=== PATIENT | female | born 1975 | race Caucasian/White ===

== ENCOUNTER 2018-02-13 17:19 | Emergency (ER) | payer OTHER ==
[~2018-02-13] VITALS: Ht 152.4 cm; Wt 106.6 kg
[~2018-02-13 17:19] MED LIST: ATORVASTATIN CA40 MG PO; CEFDINIR300 MG PO; CELEXA20 MG PO; CIPRO500 MG PO; CLONAZEPAM 0.50.5 M1 PO; CORGARD 80MG TA80 M1 PO; FLAGYL500 MG PO; HYDROCODON-ACE1 EAC7 PO; HYDROCODONE-AP1 EAC6 PO; JANUMET 50-5001 EACH PO; MAGOX 400400 MG PO; MOBIC15 MG PO; NOHOMEMEDICATIONS; PROAIR RESPICL90 MCG IH; PROMETHAZINE D480 ML PO; SORINE 80 MG TA80 MG PO; TESSALON200 MG PO; VENTOLIN HFA 1818 GM INH; ZPAK PO
[2018-02-13] MEDS ORDERED: ZOLOFT50 MG PO (17:30)
[2018-02-13] MEDS ORDERED: METFORMIN HCL500 MG PO (17:30)
[2018-02-13] MEDS ORDERED: IBUPROFEN 800800 M1 PO (18:46)
[2018-02-13 18:58] VITALS: BP 153/72
== END 2018-02-13 18:58 | disposition home or self-care (01) ==
LOC: M.ERS 17:19
DX: M79.642 Pain in left hand (principal); E11.9 Type 2 diabetes mellitus without complications; F17.210 Nicotine dependence, cigarettes, uncomplicated; Z88.8 Allergy status to other drugs, medicaments and biological substances

== ENCOUNTER 2019-02-07 07:37 | Emergency (ER) | payer OTHER ==
[~2019-02-07] VITALS: Ht 152.4 cm; Wt 96.2 kg
[~2019-02-07 07:37] MED LIST changes: +IBUPROFEN 800800 M1 PO; +METFORMIN HCL500 MG PO; +ZOLOFT50 MG PO
[2019-02-07] MEDS ORDERED: NAPROSYN500 MG PO (08:18)
[2019-02-07 08:31] VITALS: BP 141/79
== END 2019-02-07 08:32 | disposition home or self-care (01) ==
LOC: M.ERS 07:37
DX: S93.492A Sprain of other ligament of left ankle, initial encounter (principal); F17.210 Nicotine dependence, cigarettes, uncomplicated; E11.9 Type 2 diabetes mellitus without complications; Z88.6 Allergy status to analgesic agent; W10.9XXS Fall (on) (from) unspecified stairs and steps, sequela; Y92.89 Other specified places as the place of occurrence of the external cause; Y93.89 Activity, other specified; Y99.8 Other external cause status

== ENCOUNTER 2019-10-28 06:43 | Inpatient (IN) | payer OTHER ==
[2019-10-22 10:21] LABS: ABSOLUTE BASOPHILS 0.1 thou/uL (0.0-0.2); ABSOLUTE EOSINOPHILS 0.1 thou/uL (0.0-0.7); ABSOLUTE LYMPHOCYTES 2.1 thou/uL (0.8-5.3); ABSOLUTE MONOCYTES 0.4 thou/uL (0.0-1.2); ABSOLUTE NEUTROPHILS 5.7 thou/uL (1.6-8.1); BASOPHILS 0.8 %; EOSINOPHILS 1.2 %; HEMATOCRIT 40.3 % (37.0-47.0); HEMOGLOBIN 13.4 gm/dL (12.0-15.0); MCH 26.9 pg (26.0-34.0); MCHC 33.3 g/dL (28.0-37.0); MONOCYTES 5.3 %; MPV 8.6 fl. (7.2-11.1); NUCLEATED RBCS 0 /100WBC; PLATELET COUNT* 228 thou/uL (150-400); POLYS 67.7 %; RBC 4.98 mil/uL (4.20-5.00); RDW-CV 14.7 % (10.5-14.5); WBC 8.4 thou/uL (4.0-11.0)
[2019-10-22 10:30] LABS: APTT 25.9 Seconds (25.0-31.3); PROTIME 9.8 Seconds (9.20-11.50)
[2019-10-22 10:39] LABS: ALBUMIN 3.8 g/dL (3.4-5.0); CALCIUM 9.2 mg/dL (8.5-10.1); CREATININE 0.6 mg/dL (0.6-1.3); POTASSIUM 4.5 mmol/L (3.5-5.1); TOTAL BILIRUBIN 0.2 mg/dL (<0.1-1.0); TOTAL PROTEIN 7.5 g/dL (6.4-8.2)
[2019-10-22 11:46] LABS: ESR (SEDRATE) 35 mm/hr (0-20)
--- NOTE | 2019-10-22 15:30 | EKG ---
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
[2019-10-23 02:07] LABS: GLYCOHEMOGLOBIN (HGB A1C) 6.5 % (4.8-5.6)
[~2019-10-28] VITALS: Ht 152.4 cm; Wt 98.0 kg
--- NOTE | ~2019-10-28 | OP ---
[address] [address] OPERATIVE REPORT Name: NATASHA INFANTE Room: [address] IN [facility]#: [id number] Admission: 10/28/19 Attend Phys: Sunny Salvador Discharge: Date of : 73 Report #: [id number] THIS REPORT FOR: //name// cc: Nori Orozco Ahmad W. DO ~ THIS REPORT FOR: //name// CC: Nori Clement DICTATED BY: Jurgen Jacobson DO DATE OF SERVICE: 10/28/2019 TIME OF SURGERY: 1400. SURGEON: Johan Miller DO ASSISTANTS: Favian Bearden DO and Jurgen Jacobson DO PREOPERATIVE DIAGNOSIS: Left knee degenerative joint disease. POSTOPERATIVE DIAGNOSIS: Left knee degenerative joint disease. OPERATION PERFORMED: Left total knee arthroplasty. INDICATIONS FOR SURGERY: The patient has been struggling with left knee pain for several years. She has a previous history of a left knee arthroscopic surgery, in which she had a partial meniscectomy. She has had multiple injections. She has been taking nonsteroidal anti-inflammatories and has tried multiple therapies with no substantial relief and has been having increasing pain with functional activities with ambulation and with all weightbearing activities. Radiographic indications display degenerative joint disease with narrowing of the tibiofemoral joint as well as the patellofemoral joint, indicating multiple compartment disease. The risks, benefits, and indications were all discussed with the patient prior to performance. Risks include but are not limited to bleeding, infection, need for repeat surgery, hardware failure, need for hardware removal, ____ for infection that could include prolonged periods of antibiotic treatment, need for hardware removal and the implantation of antibiotic spacer, decreased range of motion, continued pain with functional activities, risk for deep vein thrombosis, pulmonary embolism, myocardial arrhythmias or even infarction and even including any and all other risks associated with general anesthesia or spinal anesthesia. The patient consented to having this procedure performed today. Timeout was performed in the OR, identifying the correct patient, the correct account number, the correct limb, the correct procedure to be performed. Radiographs were available in the room, [place] [address] OPERATIVE REPORT Name: NATASHA INFANTE Maria Teresa Room: [address] IN [facility].#: [id number] Admission: 10/28/19 Attend Phys: Sunny Salvador Discharge: Date of : 73 Report #: [id number] demonstrating the correct operative side. Preoperative antibiotics, 2 grams of Ancef, were given IV prior to incision being made. DESCRIPTION OF PROCEDURE: The patient's left lower extremity was prepped and draped in a standard sterile fashion. The limb was covered with Ioban over the surgical site. The area to be incised was marked out previously. A 10 blade was used to make an incision in the skin. A midline skin incision was used directly over the knee. The fascial planes were dissected down to the quadriceps tendon, the patellar tendon, and flaps were created on both sides subcutaneously. A new blade was then used, 10 blade, to perform a median parapatellar arthrotomy. The patella was everted to expose the femorotibial joint. The knee was taken up into flexion and the infrapatellar fat pad was debrided. The menisci were excised out. The femoral sizer was used to determine the correct angulation and alignment for cuts being made on the femur. This sized out to be a 60, which we will use for a final implant. The distal femur cut was made first and we turned our attention to the tibia. Alignment for the cut was made based on the tibial crest and the alignment with a second ray. After determining appropriate alignment with the cutting block and ____, the tibial cut was made and the tibial plateau was then removed. A 67 tibial trial was then placed, which will again be our final implant. A 10 mm spacer was then used and determined to allow for slightly excessive motion, then would be desired. A 12 poly trial was then implanted and determined to be stable in both extension and flexion with no excessive movement upon varus and valgus stressing, no excessive recurvatum, no excessive motion with anterior and posterior drawer testing at 90 degrees of flexion. Attention then turned to the patellar preparation. This sized out at a 28 mm patella, which would be used for a final implant. Once trialing was completed, the trial components were removed. Cement was mixed on the back table while pulse lavage was performed to the ends of the bones to clear out bleeding in the exposed trabecular bone. Cement and implants were then placed over the appropriate cut and appropriate alignment. Again, 67 size tibia, 60 size femur, 12 mm poly, and a 28 size patella were then implanted, this was using the [employer] Vanguard knee. After these implants were determined to be stable and the cement had hardened in the extended position of the knee, the arthrotomy was then closed. Prior to the arthrotomy closure, however, we did perform local anesthetic injection. The arthrotomy was then closed. Pulse lavage was used again to washout the arthrotomy closure and the subcutaneous tissue. This was performed with a #1 Vicryl and a double-ended #1 Stratafix self-retaining suture. Then, the subcutaneous tissue was closed with a 2-0 Monocryl and then the final layer of tissue was closed with 3-0 self-retaining suture and Dermabond glue and a Mepilex bandage was used to close the incision. INTRAOPERATIVE FINDINGS: Tricompartmental degenerative joint disease of the left knee. Sponge and instrument counts were all correct. There were no drains placed. There [place] [address] OPERATIVE REPORT Name: NARESHNATASHA Maria Teresa Room: [address] IN [facility]#: [id number] Admission: 10/28/19 Attend Phys: Sunny Salvador Discharge: Date of : 73 Report #: [id number] IMPLANTS: Again, a 67 tibia, 60 femur, 12 mm poly, 28 patella. BLOOD LOSS: Estimated at 160 mL. No blood products were issued. TOTAL FLUIDS: Not recorded. By: [id number] Miller DO /nt
[~2019-10-28 06:43] MED LIST changes: -ATORVASTATIN CA40 MG PO; +GLUCOPHAGE1000 MG PO; +LIPITOR40 MG PO; +LISINOPRIL5 MG PO; +NAPROSYN500 MG PO; +OZEMPIC1 MG/0.75 SUBQ; +SERTRALINE HCL100 MG PO; +TYLENOL WITH CO1 TA1 PO; +VITAMIN D21250 MC1 PO
[2019-10-28 12:27] VITALS: BP 133/74
--- NOTE | 2019-10-28 14:44 | NUR ---
PATIENT BLOOD SUGAR WAS 103 FASTING IN PREOP.
[2019-10-28 18:25] VITALS: BP 106/58
[2019-10-28 20:00] VITALS: BP 137/77
[2019-10-29] VITALS: BP 105/57
[2019-10-29 04:00] VITALS: BP 86/51
--- NOTE | 2019-10-29 04:56 | NUR ---
PATIENT HAS REMAINED ALERT AND ORIENTED X 4 THROUGHOUT THE SHIFT AND RESTING QUIETLY ON HOURLY ROUNDS. UP TO BSC WITH CGA, GAIT BELT AND WALKER/ADEQUATE VOIDS. DRESSING LEFT KNEE CLEAN AND DRY. PAIN WELL MANAGEMENT WITH ON-Q AT 6 AND ORAL PAIN MEDICATION. VITAL SIGNS STABLE ON ROOM AIR WITH CONTINUOUS CAPNOGRAPHY. CONTINUE TO MONITOR.
[2019-10-29 05:58] LABS: HEMATOCRIT 32.6 % (37.0-47.0); HEMOGLOBIN 10.9 gm/dL (12.0-15.0)
[2019-10-29 06:09] VITALS: BP 96/57
[2019-10-29 08:12] VITALS: BP 127/68
--- NOTE | 2019-10-29 12:38 | NUR ---
RECIEVED O.T. ORDERS. WILL DEFER TO P.T. AT THIS TIME. PLEASE ORDER FURTHER O.T. SERVICES IF NEEDED.
[2019-10-29] MEDS ORDERED: ROXICODONE5 M2 PO (12:43)
[2019-10-29] MEDS ORDERED: ELIQUIS2.5 MG PO (12:44)
[2019-10-29] MEDS ORDERED: MAG-AL LIQUID30 ML PO (12:46)
[2019-10-29] MEDS ORDERED: METAMUCIL1 EAC1 PO (12:46)
[2019-10-29] MEDS ORDERED: DOCUSATE SODIU100 MG PO (12:48)
[2019-10-29 12:57] VITALS: BP 127/68
[2019-10-29 14:49] VITALS: BP 112/48
--- NOTE | 2019-10-29 15:05 | NUR ---
PT.TO DISCHARGE TODAY. WAS CLEARED BY P.T. SHE SAID SHE FELT READY TO GO HOME. SHE LIVES WITH HER MOM AND SON. THEY WILL BE WITH HER AT HOME AND CAN ASSIST NEEDED. PT.STATED SHE HAS A WALKER AT HOME. SHE WOULD PREFER TO DO OUTPT.THERAPY AT [facility] IN [place]. CM WILL FAX ORDERS TO THEM AND THEY WILL CALL HER TO SET UP APPTS. CM CALLED IN [facility] TO [facility]. COPAY IS $44. PT.IS MORMALLY INDEPENDENT.
--- NOTE | 2019-10-29 15:11 | NUR ---
ASSUMED CARE OF PT AROUND 0730 THIS AM. REFER TO ASSESSMENT. PT PAIN MANAGED WITH PRN MEDICATION. PT TOLERATING WELL. PT PARTICIPATED WITH PT AND OT AND TOLERATED WELL. PT/OT OK WITH DC HOME. DC ORDERS OBTAINED FROM PHYSICIAN. PT GIVEN DC INSTRUCTIONS AND VERBALIZES UNDERSTANDING. PT REQUESTING OUTPATIENT THERAPY. NO OTHER CONCERNS AT THIS TIME. CLWR. WCTM.
== END 2019-10-29 15:56 | disposition home or self-care (01) | DRG 470 ==
LOC: M.PRE 06:43 → M.TBA 11:17 → M.PRE 11:37 → M.TBA 13:55 → M.ORTHSURG 13:55 → M.PRE 14:38 → M.ORTHSURG 16:50 → M.PRE 19:21 → M.ORTHSURG 10-29 15:56
PROVIDERS: Orthopaedic Surgery; ADMIT Internal Medicine; ATTEND Internal Medicine
PROC: 0SRD0J9 Replacement of Left Knee Joint with Synthetic Substitute, Cemented, Open Approach (ICD-10-PCS; principal; 2019-10-28)
DX: M17.12 Unilateral primary osteoarthritis, left knee (principal); E11.9 Type 2 diabetes mellitus without complications; F17.210 Nicotine dependence, cigarettes, uncomplicated; R00.0 Tachycardia, unspecified; E78.5 Hyperlipidemia, unspecified; F41.9 Anxiety disorder, unspecified; I10 Essential (primary) hypertension; Z20.828 Contact with and (suspected) exposure to other viral communicable diseases; Z88.8 Allergy status to other drugs, medicaments and biological substances; Z79.899 Other long term (current) drug therapy

== ENCOUNTER 2019-10-30 07:41 | Emergency (ER) | payer OTHER ==
[~2019-10-30] VITALS: Ht 152.4 cm; Wt 96.6 kg
[~2019-10-30 07:41] MED LIST changes: +DOCUSATE SODIU100 MG PO; +ELIQUIS2.5 MG PO; +MAG-AL LIQUID30 ML PO; +METAMUCIL1 EAC1 PO; +ROXICODONE5 M2 PO
[2019-10-30 07:47] VITALS: BP 152/67
== END 2019-10-30 08:45 | disposition home or self-care (01) ==
LOC: M.ERS 07:41
DX: G89.18 Other acute postprocedural pain (principal); E11.9 Type 2 diabetes mellitus without complications; F17.210 Nicotine dependence, cigarettes, uncomplicated; Z96.652 Presence of left artificial knee joint; Z88.6 Allergy status to analgesic agent

== ENCOUNTER → 2020-06-22 | Outpatient (CLI) | payer OTHER | LOC: M.RAD 09:39 | PROVIDERS: ATTEND Family Medicine | DX: M19.011 Primary osteoarthritis, right shoulder (principal); M54.12 Radiculopathy, cervical region; M40.40 Postural lordosis, site unspecified ==

== ENCOUNTER 2020-11-21 19:01 | Emergency (ER) | payer OTHER ==
[~2020-11-21] VITALS: Ht 152.4 cm; Wt 97.5 kg
[2020-11-21 19:16] VITALS: BP 159/88
== END 2020-11-21 21:38 | disposition home or self-care (01) ==
LOC: M.ERS 19:01
DX: S61.011A Laceration without foreign body of right thumb without damage to nail, initial encounter (principal); W25.XXXA Contact with sharp glass, initial encounter; Y93.89 Activity, other specified; Y92.89 Other specified places as the place of occurrence of the external cause; Y99.8 Other external cause status